=== PATIENT | female | born 2000 | race Caucasian/White ===

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

== ENCOUNTER 2021-08-21 22:48 | Emergency (ER) | payer OTHER ==
[~2021-08-21 22:48] MED LIST changes: +CEFUROXIME500 MG PO; +DOCUSATE SODIU100 MG PO; +IBUPROFEN600 MG PO; +PRENATAL VITAM1 EAC5 PO; +ZOFRAN 4 MG TAB4 MG PO
[2021-08-21 23:33] LABS: HEMOGLOBIN 14.3 gm/dl (12.3-15.3); RED BLOOD COUNT 4.84 M/UL (4.00-5.10); WHITE BLOOD COUNT 5.2 K/UL (4.5-11.0)
[2021-08-21 23:48] LABS: BUN/CREATININE RATIO 27 (0-10)
== END 2021-08-22 02:59 | disposition left against medical advice (07) ==
LOC: ER1 22:48
PROVIDERS: Family Medicine
DX: R10.9 Unspecified abdominal pain (principal); F17.290 Nicotine dependence, other tobacco product, uncomplicated; Z88.8 Allergy status to other drugs, medicaments and biological substances
CPT/HCPCS: 80053; 81001; 84703; 85025; 99281